=== PATIENT | male | born 1955 | race Caucasian/White ===

== ENCOUNTER 2016-11-19 07:37 | Day surgery (SDC) | payer BC, OTHER ==
[~2016-11-19 07:37] MED LIST: RINGER'S SOLUTION,LACTATED 1,000 ML IV PRN; ceFAZolin SODIUM 2 GM in DEXTROSE 5 % IN WATER 50 ML IV PRN
[2016-11-19] MEDS ORDERED: RINGER'S SOLUTION,LACTATED 1,000 ML IV ONE ×2 (08:09→09:58)
[2016-11-19] MEDS ORDERED: ISOPROPYL ALCOHOL 480 APPL BTL MC ONE (09:05)
[2016-11-19] MEDS ORDERED: BUPIVACAINE HCL/EPINEPHRINE 50 ML VIAL IJ ONE ×2 (09:05)
[2016-11-19] MEDS ORDERED: RINGER'S SOLUTION,LACTATED 1,000 ML IV PRN (10:44)
[2016-11-19] MEDS ORDERED: oxyCODONE HCL/ACETAMINOPHEN 1 TAB TABLET PO ONE (10:44)
[2016-11-19 12:53] VITALS: BP 152/87
--- NOTE | 2016-11-19 19:40 | OR ---
Operative Report - Dictated Report Narrative: OPERATIVE REPORT DATE OF OPERATION: 11/19/2016 PREOPERATIVE DIAGNOSIS: Umbilical hernia. History of colon polyps POSTOPERATIVE DIAGNOSIS: Umbilical hernia. 5 mm polyp at 70 cm, 3 mm polyp at 65 cm, polyp in the cecum (pathology pending). Diverticulosis OPERATION: Primary repair of umbilical hernia. Colonoscopy with hot biopsy forceps polypectomy 3 SURGEON: Festus Krishnan MD ANESTHESIA: Gen. nohemi Walker CRNA INDICATIONS FOR PROCEDURE: The patient is a 61-year-old male with an increasingly symptomatic umbilical hernia. He has a history of tubular adenoma 2 in 2009 and is due for surveillance. FINDINGS: 1 cm fascial defect at the umbilicus containing herniated properitoneal fat. 5 mm polyp at 70 cm, 3 mm polyps at 65 cm and in the cecum ( pathology pending). Sigmoid diverticulosis NARRATIVE OF PROCEDURE: The patient was identified in the holding area, and prior to the administration of anesthetic, a multidisciplinary timeout was observed. REPAIR OF UMBILICAL HERNIA: With the patient in the supine position, SCDs were applied, 2 g of intravenous Ancef administered, and general endotracheal anesthetic administered. The patient's abdomen was prepped with Betadine solution and the area around the umbilicus was isolated with 4 sterile towels. The remainder the patient was covered with a sterile disposable drape. A transverse infraumbilical skin incision was made. Dissection was carried to subcutaneous tissue with electrocautery until herniated properitoneal fat was encountered. This was dissected free from the undersurface of the umbilical skin down to the fascia which was identified on all margins. The fat was freely reducible into the properitoneal space. The defect measured approximately 1 cm in size, and was too small to allow introduction of a mesh patch. A transverse primary repair was effected using 4 interrupted sutures of 0 Ethibond. The repair was seen to be sound. After receiving a correct sponge needle and instrument count attention was turned to closing the wound. 0.5% Marcaine with epinephrine was used for local anesthetic infiltration. Subcutaneous space was obliterated with interrupted sutures of 3-0 chromic. The skin was approximated with a running subcuticular suture of 4-0 Vicryl. The operative site was washed and dried. A dressing of Dermabond, 2 x 2 and Medipore tape was applied. No specimen was submitted. There was no measurable blood loss. COLONOSCOPY WITH HOT FORCEPS POLYPECTOMY X 3: The patient was then placed in the left lateral position with appropriate padding and monitoring, and the perineum was inspected. There was no evidence of pilonidal disease or skin breakdown. The external appearance of the anus was normal with exception of vitiligo. Sphincter tone was good. The flexible fiberoptic colonoscope was inserted into the rectum which was insufflated with air. The rectal mucosa and submucosal vascular pattern appeared normal, the prep was seen to be complete. The scope was advanced through the sigmoid colon , which contained several non-impacted noninflamed diverticular openings. Up the descending colon, and around the splenic flexure where the triangular haustral architecture of the transverse colon was seen. The scope was advanced across the transverse colon, around the hepatic flexure to the cecum, where the confluence of tenia and the ileocecal valve were identified. There was a 3 mm area of polypoid change on a cecal fold. This was biopsied and then thoroughly destroyed with electrocautery. The site was seen to be complete and hemostatic. The mucosa at this level appeared otherwise normal. The scope was then slowly withdrawn in a circular fashion so that all aspects of colonic mucosa were inspected. The colon was capacious and character but relatively normal in course. The haustral architecture appeared well preserved throughout with no evidence of external compression. The mucosa and submucosal vascular pattern appeared normal, specifically there was no gross evidence to suggest colitis or inflammatory bowel disease and no AV malformations were seen. The diverticulosis was mild in degree and confined primarily to the sigmoid colon. At 70 cm a 5 mm adenomatous appearing polyp was encountered. This was biopsied and then thoroughly destroyed with electrocautery. The site was seen to be complete and hemostatic. The scope was withdrawn to 65 cm were an additional 3 mm area of polypoid change was encountered. This was biopsied and then thoroughly destroyed with electrocautery. The site was seen to be complete and hemostatic. The scope was gradually withdrawn to the level of the rectum. As much insufflated air as possible was removed. The scope was withdrawn from the patient and the procedure terminated. The patient tolerated the anesthetic and procedure well without complication and was transferred to the recovery room awake, extubated, and in stable condition. The patient remained stable throughout a period of postoperative observation. He denied abdominal discomfort, was able to tolerate by mouth intake, and was up without assistance. I shared the operative findings with the patient and he was given copies of the photographs which appear in the medical record. He was discharged home with instructions not to lift and not to drive, however he may advance diet as tolerated. He is to keep his wound dry and covered for 48 hours but then may shower and change the dressing as needed. He was given a prescription for Percocet 5/325 mg #30 1-2 po Q4-6hrs prn pain. He is to continue those medications as listed in the history and physical exam. I made arrangements to contact him with the polyp biopsy reports and will make additional recommendations for treatment and follow-up based upon those results. He has phone numbers to call prn signs of wound infection or hematoma. A return office appointment was made for 1 week for wound inspection. Reviewed and electronically signed
== END 2016-11-19 07:38 | disposition home or self-care (01) ==
LOC: AMB 07:37
PROVIDERS: ATTEND Surgery
PROC: 0DBE8ZX Excision of Large Intestine, Via Natural or Artificial Opening Endoscopic, Diagnostic (ICD-10-PCS; 2016-11-19)
PROC: 0WQF0ZZ Repair Abdominal Wall, Open Approach (ICD-10-PCS; principal; 2016-11-19 09:00)
PROC: 0DBH8ZX Excision of Cecum, Via Natural or Artificial Opening Endoscopic, Diagnostic (ICD-10-PCS; 2016-11-19 09:00)
DX: Z12.11 Encounter for screening for malignant neoplasm of colon (principal); D12.0 Benign neoplasm of cecum; K63.5 Polyp of colon; K57.30 Diverticulosis of large intestine without perforation or abscess without bleeding; K42.9 Umbilical hernia without obstruction or gangrene; I10 Essential (primary) hypertension; E78.5 Hyperlipidemia, unspecified; Z68.31 Body mass index [BMI] 31.0-31.9, adult